=== PATIENT | female | born 1960 | race Two or more races ===

== ENCOUNTER 2024-08-31 11:16 | Emergency (ER) | payer OTHER ==
[~2024-08-31] VITALS: Ht 157.5 cm; Wt 90.7 kg
[2024-08-31] MEDS ORDERED: CLENPIQ PO (12:23)
[2024-08-31] MEDS ORDERED: SYNTHROID137 MCG PO (12:23)
[2024-08-31] MEDS ORDERED: ROSUVASTATIN CA10 MG PO (12:24)
[2024-08-31] MEDS ORDERED: VALSARTAN-HCTZ1 EAC1 PO (12:24)
[2024-08-31] MEDS ORDERED: VAZALORE81 MG PO (12:24)
[2024-08-31] MEDS ORDERED: WEGOVY2.4 MG/0.7 SQ (12:25)
== END 2024-08-31 13:53 | disposition home or self-care (01) ==
LOC: ER 11:18
DX: M25.532 Pain in left wrist (principal); Z88.2 Allergy status to sulfonamides